=== PATIENT | male | born 1965 | race Caucasian/White ===

== ENCOUNTER → 2018-07-25 | Outpatient (CLI) | payer SELFPAY | LOC: OD 16:32 | PROVIDERS: ATTEND Family Medicine | DX: R97.20 Elevated prostate specific antigen [PSA] (principal) | CPT/HCPCS: 36415; 84153 ==

== ENCOUNTER 2019-02-26 19:38 | Emergency (ER) | payer OTHER, MEDICARE ==
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
[2019-02-26] MEDS ORDERED: IBUPROFEN 800 MG TABLET PO ONE (21:31)
[2019-02-26 21:39] VITALS: BP 122/81
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
== END 2019-02-26 21:52 | disposition home or self-care (01) ==
LOC: ER 19:38
DX: S92.312A Displaced fracture of first metatarsal bone, left foot, initial encounter for closed fracture (principal); M79.672 Pain in left foot; M79.662 Pain in left lower leg; V43.52XA Car driver injured in collision with other type car in traffic accident, initial encounter; G80.9 Cerebral palsy, unspecified
CPT/HCPCS: 99283

== ENCOUNTER 2019-11-10 06:57 | Day surgery (SDC) | payer MEDICARE, OTHER ==
[2019-11-10] MEDS ORDERED: PROPOFOL INJ 200 MG/20 ML VIAL IV ONE (07:49)
[2019-11-10] MEDS ORDERED: LIDOCAINE 2% INJ-PF (20 MG/ML) 10 ML AMPUL ONE (07:49)
[2019-11-10 08:48] VITALS: BP 139/88
--- NOTE | 2019-11-10 13:14 | Operative Report ---
Operative Report DATE OF SURGERY: 11/10/19 Operative Report: The risk, benefits and alternatives of the procedure including the risk of bleeding, perforation requiring surgery have been explained to the patient in detail and informed consent has been obtained. Patient is placed in a left, lateral decubital position. Timeout was called. Propofol medication is administered. Rectal examination is done which did not reveal any masses, tears or fissures. An Olympus videoscope was introduced into the patient's rectum. Scope was then carefully advanced all the way to the cecum. Cecum was identified by the usual anatomical landmarks of the ileocecal valve as well as appendiceal office. Photodocumentation is obtained. Scope was then sequentially pulled back via the various segments of the colon including the ascending colon, hepatic flexure, transverse colon, splenic flexure, descending colon finding to the rectosigmoid portions of the colon. Retroflexion maneuvers performed. 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 COMPLICATIONS: None. ESTIMATED BLOOD LOSS: None. INTRAOPERATIVE FINDINGS: As noted above. PROCEDURE: Patient tolerated the procedure well. No immediate postprocedure complications are noted. Patient is discharged in good condition. Discharge date 11/10/2019. Discharge diet: Regular. Discharge activity: Regular. 2 to 3-week follow-up to discuss findings. Patient is instructed to call the office or proceed to the emergency room should there be any further problems or questions. 10-year surveillance colonoscopy.
== END 2019-11-10 09:00 | disposition home or self-care (01) ==
LOC: END 06:57
PROVIDERS: ATTEND Internal Medicine Gastroenterology
DX: Z12.11 Encounter for screening for malignant neoplasm of colon (principal); K63.89 Other specified diseases of intestine; K21.9 Gastro-esophageal reflux disease without esophagitis; E78.5 Hyperlipidemia, unspecified; Z79.899 Other long term (current) drug therapy
CPT/HCPCS: 45380; 88305 ×2; 00812; J2704; J3490; 812